=== PATIENT | male | born 1985 | race Caucasian/White ===

== ENCOUNTER 2021-03-01 12:36 | Emergency (ER) | payer SELFPAY ==
[~2021-03-01] VITALS: Ht 172.7 cm; Wt 65.8 kg
--- NOTE | 2021-03-01 12:47 | NUR ---
bib62, from street, admits on using meth and took unknown amount of seroquel "i thought it was a mint", denies SI/HI. PT AAOX3, VSS. RR EVEN & UNLABORED. DENIES CP, SOB, DIZZINESS, N/V AT THIS TIME. PT SEEN & EVAL'D BY DR. PATTERSON. PLACED ON TEST ENGINEER NUCLEAR EQUIPMENT, SR. WILL CONT TO MONITOR.
[2021-03-01 13:01] LABS: BASOPHILS # (AUTO) 0.1 K/uL (0.0-0.2); EOSINOPHILS % (AUTO) 0.2 % (0.0-6.0); HEMATOCRIT 40 % (39-51); HEMOGLOBIN 13.4 g/dL (13.5-17.5); LYMPHOCYTES # (AUTO) 3.3 K/uL (0.8-4.8); LYMPHOCYTES % (AUTO) 28.9 % (20.0-44.0); MEAN CORPUSCULAR HGB CONC 33 g/dl (31.0-36.0); MEAN CORPUSCULAR VOLUME 90 fL (80-96); MONOCYTES # (AUTO) 0.8 K/uL (0.1-1.30); MONOCYTES % (AUTO) 6.7 % (2.0-12.0); NEUTROPHILS # (AUTO) 7.2 K/uL (1.8-8.9); NEUTROPHILS % (AUTO) 63.2 % (43.0-81.0); PLATELET COUNT (AUTO) 413 K/uL (150-450); RED BLOOD CELL COUNT(AUTO) 4.47 MIL/uL (4.5-6.0); WHITE BLOOD COUNT (AUTO) 11.3 K/uL (4.3-11.0)
--- NOTE | 2021-03-01 13:14 | NUR ---
CALLED POISON CONTROL [phone]
--- NOTE | 2021-03-01 13:18 | NUR ---
MIN 6 HOURS FROM THE TIME OF INJESTION PER ABHINAV. NO CHARCOL NEEDED. PLACE ON MONITOR. DO EKG WATCH ST. ITS COMMON SEDATION FIRST TWO HOURS SO AROUND 1430. IF QRS > 120 SODIUM BACARB USE FOR HYPO LOOK @ QTC IF > 500 CHECKING MAG. NO TO DOPOMINE INSTEAD USE NERUOEPINEPHRINE LOOK FOR SEIZURES. RUN TYL, ASA, BMP. IF GETS DROWSY WILL STAY DROWSY AND HAS TO BE OBSERVED FOR LONGER PERIOD.
[2021-03-01 13:27] LABS: ALANINE AMINOTRANSFERASE 41 U/L (12-78); ALBUMIN 4.1 g/dL (3.4-5.0); ALCOHOL, BLOOD < 3 mg/dL (0-0); ALKALINE PHOSPHATASE 62 U/L (46-116); ASPARTATE AMINOTRANSFERASE 33 U/L (15-37); BILIRUBIN,DIRECT 0.1 mg/dL (0.0-0.2); BILIRUBIN,TOTAL 0.6 mg/dL (0.2-1.0); CALCIUM, SERUM 8.8 mg/dL (8.5-10.1); CARBON DIOXIDE 24 mmol/L (21-32); CHLORIDE 105 mmol/L (98-107); CREATININE 1.1 mg/dL (0.6-1.3); GLUCOSE 103 mg/dL (74-106); POTASSIUM 3.6 mmol/L (3.5-5.1); SODIUM SERUM 144 mmol/L (136-145); TOTAL PROTEIN, SERUM 7.7 g/dL (6.4-8.2); UREA NITROGEN, BLOOD 15 mg/dL (7-18)
[2021-03-01 13:29] LABS: ACETAMINOPHEN < 10 ug/ml (10-30)
--- NOTE | 2021-03-01 13:50 | NUR ---
PT REFUSING TO PROVIDE URINE SAMPLE. GETTING AGITATED. MADISYN PATTERSON MADE AWARE.
--- NOTE | 2021-03-01 13:51 | NUR ---
PT REFUSED TO GIVE URINE SAMPLE AT THIS TIME. YESENIA AMES AWARE
--- NOTE | 2021-03-01 15:07 | NUR ---
PT ASLEEP, EASILY AWAKEN WITH VERBAL STIMULI & WILL GO BACK TO SLEEP. RR EVEN & UNLABORED. NAD NOTED AT THIS TIME & WILL CONT TO MONITOR.
--- NOTE | 2021-03-01 16:15 | NUR ---
TONNAGE COMPILATION CLERK AT PT'S BEDSIDE
--- NOTE | 2021-03-01 19:15 | NUR ---
Patient discharged to home in stable condition. Written and verbal after care instructions given. Patient verbalizes understanding of instruction. IV removed. Catheter intact and site benign. Pressure and 4x4 applied to site. No bleeding noted.
[2021-03-01 19:16] VITALS: BP 118/76
== END 2021-03-01 19:17 | disposition home or self-care (01) ==
LOC: ER 12:39
DX: T43.591A Poisoning by other antipsychotics and neuroleptics, accidental (unintentional), initial encounter (principal); Y92.89 Other specified places as the place of occurrence of the external cause
CPT/HCPCS: 36415; 71045-TC; 80048-TC; 80076-TC; 83735-TC; 84484-TC; 85025-TC; G0480